=== PATIENT | female | born 1945 | race Caucasian/White ===

== ENCOUNTER 2018-09-22 12:53 | Outpatient (CLI) | payer MEDICARE, BC ==
--- NOTE | 2018-09-22 14:54 | RAD ---
THORACIC SPINE 2 VIEWS: Date: 09/22/18 HISTORY: Age-related osteoporosis. FINDINGS: There are degenerative changes in the spine. There is S-shaped scoliosis of the thoracolumbar spine. No acute fracture or subluxation is seen. IMPRESSION: Scoliosis of the spine with spondylosis. POS: LINDA
== END 2018-09-22 12:54 | disposition home or self-care (01) ==
LOC: BICRAD 12:53
PROVIDERS: ATTEND Internal Medicine Rheumatology
DX: M81.0 Age-related osteoporosis without current pathological fracture (principal); M47.814 Spondylosis without myelopathy or radiculopathy, thoracic region; M41.9 Scoliosis, unspecified
CPT/HCPCS: 72070

== ENCOUNTER 2019-09-30 12:55 | Outpatient (CLI) | payer MEDICARE, BC ==
--- NOTE | 2019-09-30 14:07 | BD ---
BONE DENSITOMETRY USING DEXA: Date: 09/30/19 HISTORY: Postmenopausal screening for osteoporosis. FINDINGS: Lumbar Spine: BMD (g/cm2) L1 1.135 T-Score: 1.3 Z-Score: 3.4 L2 0.977 T-Score: -0.5 Z-Score: 1.8 L3 1.103 T-Score: 0.2 Z-Score: 2.6 L4 1.090 T-Score: 0.3 Z-Score: 2.8 L1-L4 1.070 T-Score: 0.2 Z-Score: 2.5 Femoral Neck: 0.724 T-Score: -1.1 Z-Score: 0.9 Total Femur: 0.815 T-Score: -1.0 Z-Score: 0.7 The 10 year fracture risk for a major osteoporotic fracture is 22% and for a hip fracture is 11%. IMPRESSION: Osteopenia. POS: LINDA
== END 2019-09-30 12:56 | disposition home or self-care (01) ==
LOC: BICMAMMO 12:55
PROVIDERS: ATTEND Internal Medicine Rheumatology
DX: M81.0 Age-related osteoporosis without current pathological fracture (principal); M85.859 Other specified disorders of bone density and structure, unspecified thigh
CPT/HCPCS: 77080

== ENCOUNTER 2021-10-02 12:57 | Outpatient (CLI) | payer MEDICARE, BC | END 2021-10-02 12:58 | disposition home or self-care (01) | LOC: BICMAMMO 12:57 | PROVIDERS: ATTEND Internal Medicine Rheumatology | DX: M81.0 Age-related osteoporosis without current pathological fracture (principal); M85.851 Other specified disorders of bone density and structure, right thigh | CPT/HCPCS: 77080 ==

== ENCOUNTER 2023-12-16 13:28 | Outpatient (CLI) | payer MEDICARE, BC | END 2023-12-16 13:29 | disposition home or self-care (01) | LOC: BICMAMMO 13:28 | PROVIDERS: ATTEND Internal Medicine Rheumatology | DX: M81.0 Age-related osteoporosis without current pathological fracture (principal); M85.851 Other specified disorders of bone density and structure, right thigh; M85.852 Other specified disorders of bone density and structure, left thigh | CPT/HCPCS: 77080 ==